=== PATIENT | male | born 1965 | race Caucasian/White ===

== ENCOUNTER 2018-06-29 19:07 | Inpatient (IN) | payer SELFPAY ==
[~2018-06-29] VITALS: Ht 172.7 cm; Wt 90.9 kg
[2018-06-29 20:10] LABS: BASOPHILS % (AUTO) 0.9 % (0.0-2.0); EOSINOPHILS % (AUTO) 11.9 % (1.0-6.0); HEMATOCRIT 44.5 % (41-53); HEMOGLOBIN 14.8 g/dL (13.5-17.5); LYMPHOCYTES % (AUTO) 26.8 % (22.0-44.0); MEAN CORPUSCULAR HGB CONC 33.3 G/dL (31.0-37.0); MEAN CORPUSCULAR VOLUME 102 fL (80-100); MONOCYTES # (AUTO) 0.4 K/uL (0.1-1.0); MONOCYTES % (AUTO) 5.6 % (2.0-9.0); NEUTROPHILS # (AUTO) 4.1 K/uL (1.8-7.7); NEUTROPHILS % (AUTO) 54.8 % (40.0-70.0); PLATELET COUNT (AUTO) 242 K/uL (150-450); RED BLOOD CELL COUNT(AUTO) 4.36 MIL/uL (4.50-5.90)
[2018-06-29 20:21] LABS: ANION GAP 5 mmol/L (8-16); CALCIUM, TOTAL 8.7 mg/dL (8.8-10.5); CARBON DIOXIDE 32 mmol/L (22-29); CHLORIDE 105 mmol/L (98-107); GLOMERULAR FILTR. RATE CALC > 60 mL/min (>60); GLUCOSE,RANDOM 115 mg/dL (70-110); SODIUM SERUM 142 mmol/L (136-145); UREA NITROGEN, BLOOD 7 mg/dL (7-18)
[2018-06-29 20:25] LABS: ALANINE AMINOTRANSFERASE 69 U/L (12-78); ALBUMIN 3.4 g/dL (3.4-5.0); ALKALINE PHOSPHATASE 108 U/L (46-116); ASPARTATE AMINOTRANSFERASE 106 U/L (15-37); BILIRUBIN,TOTAL 0.7 mg/dL (0.1-1.0); LIPASE 306 U/L (73-393); TOTAL PROTEIN, SERUM 9.5 g/dL (6.4-8.2)
[2018-06-29] MEDS ORDERED: POVIDONE-IODINE 10% 120 ML SOLUTION TP ONE (21:30)
[2018-06-29] MEDS ORDERED: IOVERSOL 350 MG/ML 100 ML VIAL ONE ×2 (21:33→23:14)
[2018-06-29] MEDS ORDERED: SODIUM CHLORIDE 0.9% 100 ML ONE ×2 (21:33→23:14)
[2018-06-29 21:45] LABS: PROTHROMBIN TIME 10.8 SEC (9.4-11.6)
[2018-06-29 22:42] LABS: APPEARANCE,URINE CLEAR (CLEAR); BILIRUBIN,URINE NEGATIVE (NEGATIVE); GLUCOSE, URINE (UA) NEGATIVE (NEGATIVE); KETONES,URINE NEGATIVE (NEGATIVE); LEUKOCYTE ESTERASE ,URINE NEGATIVE (NEGATIVE); NITRATE,URINE NEGATIVE (NEGATIVE); OCCULT BLOOD,URINE NEGATIVE (NEGATIVE); PROTEIN,URINE TRACE (NEGATIVE)
[2018-06-29 22:49] LABS: D-DIMER 2.74 mg/L FEU (0.00-0.50)
[2018-06-29] MEDS ORDERED: CefTRIAXone 1 GM/DEXTROSE 50 ML IV ONE (23:00)
[2018-06-29] MEDS ORDERED: SODIUM CHLORIDE 0.9% 1,000 ML IV ONE (23:00)
[2018-06-30] MEDS ORDERED: PHENYLEPHRINE HCL 0.5% 15 ML NASAL SPRAY NASAL ONE (01:15)
[2018-06-30] MEDS ORDERED: IOVERSOL 350 MG/ML 100 ML VIAL ONE (01:51)
[2018-06-30] MEDS ORDERED: 0.9% SODIUM CHLORIDE 10 ML SYRINGE IVP PRN ×2 (04:30→08:15)
[2018-06-30] MEDS ORDERED: ACETAMINOPHEN 325 MG TABLET PO PRN (04:30)
[2018-06-30] MEDS ORDERED: ONDANSETRON HCL 4 MG/2 ML VIAL IVP PRN (04:30)
[2018-06-30] MEDS: PANTOPRAZOLE SODIUM 40 MG/VIAL IVP SCH ×2 (08:54→21:19)
[2018-06-30] MEDS ORDERED: PERMETHRIN 5% 60 GM CREAM TP ONE (09:15)
[2018-06-30 09:18] VITALS: BP 131/93
[2018-06-30] MEDS ORDERED: IVERMECTIN 3 MG TABLET PO ONE (09:45)
[2018-06-30] MEDS ORDERED: MAGNESIUM SULFATE 2 GM, MVI, ADULT NO.1 WITH VIT K 10 ML, THIAMINE HCL 100 MG, FOLIC AC... IV ONE ×5 (10:00)
[2018-06-30] MEDS: THIAMINE HCL 100 MG TABLET PO SCH (10:47)
[2018-06-30] MEDS: LIDOCAINE 4% 50 ML SOLUTION TP SCH (10:49)
[2018-06-30 11:00] VITALS: BP 144/88
[2018-06-30] MEDS: ChlordiazePOXIDE HCL 10 MG CAPSULE PO SCH ×2 (15:23→21:18)
[2018-06-30 15:45] VITALS: BP 142/95
[2018-06-30 19:25] VITALS: BP 140/95
[2018-06-30 23:27] VITALS: BP 141/84
[2018-07-01] MEDS: CefTRIAXone 1 GM/DEXTROSE 50 ML IV SCH ×2 (00:20→23:39)
[2018-07-01 04:22] VITALS: BP 133/73
[2018-07-01 07:35] LABS: BASOPHILS % (AUTO) 0.7 % (0.0-2.0); EOSINOPHILS % (AUTO) 11.8 % (1.0-6.0); HEMATOCRIT 43.6 % (41-53); HEMOGLOBIN 14.6 g/dL (13.5-17.5); LYMPHOCYTES # (AUTO) 0.7 K/uL (1.0-4.8); LYMPHOCYTES % (AUTO) 17.4 % (22.0-44.0); MEAN CORPUSCULAR HEMOGLOBIN 33.9 pg (26.0-34.0); MEAN CORPUSCULAR HGB CONC 33.4 G/dL (31.0-37.0); MEAN CORPUSCULAR VOLUME 101 fL (80-100); MONOCYTES # (AUTO) 0.3 K/uL (0.1-1.0); MONOCYTES % (AUTO) 7.2 % (2.0-9.0); NEUTROPHILS # (AUTO) 2.5 K/uL (1.8-7.7); NEUTROPHILS % (AUTO) 62.9 % (40.0-70.0); PLATELET COUNT (AUTO) 165 K/uL (150-450); RED CELL DISTRIBUTION WIDTH 13.8 % (11.5-14.5)
[2018-07-01] MEDS: PANTOPRAZOLE SODIUM 40 MG/VIAL IVP SCH ×2 (07:59→20:42)
[2018-07-01] MEDS: THIAMINE HCL 100 MG TABLET PO SCH (07:59)
[2018-07-01] MEDS: ChlordiazePOXIDE HCL 10 MG CAPSULE PO SCH ×3 (07:59→20:42)
[2018-07-01 08:07] VITALS: BP 153/84
[2018-07-01 08:07] LABS: ALANINE AMINOTRANSFERASE 53 U/L (12-78); ALKALINE PHOSPHATASE 81 U/L (46-116); ANION GAP 11 mmol/L (8-16); ASPARTATE AMINOTRANSFERASE 71 U/L (15-37); BILIRUBIN,TOTAL 1.4 mg/dL (0.1-1.0); CALCIUM, TOTAL 8.8 mg/dL (8.8-10.5); CARBON DIOXIDE 24 mmol/L (22-29); CHLORIDE 101 mmol/L (98-107); CREATININE 0.95 mg/dL (0.60-1.30); GLOMERULAR FILTR. RATE CALC > 60 mL/min (>60); GLUCOSE,RANDOM 97 mg/dL (70-110); POTASSIUM 3.6 mmol/L (3.5-5.1); SODIUM SERUM 136 mmol/L (136-145); TOTAL PROTEIN, SERUM 8.8 g/dL (6.4-8.2); UREA NITROGEN, BLOOD 10 mg/dL (7-18)
[2018-07-01] MEDS: LIDOCAINE 4% 50 ML SOLUTION TP SCH (08:59)
[2018-07-01] MEDS ORDERED: LIDOCAINE 2% VISCOUS 15 ML SOLUTION UDCUP TP SCH (09:00)
[2018-07-01 11:18] VITALS: BP 122/71
[2018-07-01] MEDS: MULTIVITAMINS WITH MINERALS, THERAPEUTIC TABLET PO SCH (12:26)
[2018-07-01 15:43] VITALS: BP 130/79
[2018-07-01 19:29] VITALS: BP 123/73
[2018-07-01 23:35] VITALS: BP 128/72
[2018-07-01] MEDS ORDERED: SODIUM CHLORIDE 0.9% 250 ML IV ONE (23:40)
[2018-07-02 08:08] VITALS: BP 136/91
[2018-07-02] MEDS: LIDOCAINE 4% 50 ML SOLUTION TP SCH (09:00)
[2018-07-02] MEDS: THIAMINE HCL 100 MG TABLET PO SCH (09:00)
[2018-07-02] MEDS: PANTOPRAZOLE SODIUM 40 MG/VIAL IVP SCH (09:15)
[2018-07-02] MEDS: ChlordiazePOXIDE HCL 10 MG CAPSULE PO SCH (09:15)
[2018-07-02] MEDS: MULTIVITAMINS WITH MINERALS, THERAPEUTIC TABLET PO SCH (09:18)
[2018-07-02 13:32] VITALS: BP 116/69
== END 2018-07-02 15:00 | disposition home or self-care (01) | DRG 603 ==
LOC: EMS 19:09 → 5S 06-30 08:00 → 4E 07-02 06:30
PROVIDERS: ADMIT Internal Medicine; ATTEND Internal Medicine
DX: L03.115 Cellulitis of right lower limb (principal); K92.0 Hematemesis; F17.210 Nicotine dependence, cigarettes, uncomplicated; R04.0 Epistaxis; F10.129 Alcohol abuse with intoxication, unspecified; B86 Scabies; L03.116 Cellulitis of left lower limb; Z59.0 Homelessness
CPT/HCPCS: 71275; 74177; 83605; 83735; 85379; 87040; 92610; 93005; 93970; C9113; G0378; G0480; J0696; J2405; J3411; J3475; J3490; J7030; J7050

== ENCOUNTER 2018-08-20 10:43 | Emergency (ER) | payer MEDICAID ==
[~2018-08-20] VITALS: Ht 172.7 cm; Wt 81.8 kg
[2018-08-20] MEDS ORDERED: SODIUM CHLORIDE 0.9% 1,000 ML IV ONE (11:45)
[2018-08-20] MEDS ORDERED: ChlordiazePOXIDE HCL 25 MG CAPSULE PO ONE (11:45)
[2018-08-20 11:56] LABS: BASOPHILS % (AUTO) 0.4 % (0.0-2.0); EOSINOPHILS % (AUTO) 0.5 % (1.0-6.0); HEMATOCRIT 48.8 % (41-53); HEMOGLOBIN 16.3 g/dL (13.5-17.5); LYMPHOCYTES # (AUTO) 0.7 K/uL (1.0-4.8); MEAN CORPUSCULAR HEMOGLOBIN 33.4 pg (26.0-34.0); MEAN CORPUSCULAR HGB CONC 33.4 G/dL (31.0-37.0); MEAN CORPUSCULAR VOLUME 100 fL (80-100); MONOCYTES # (AUTO) 0.3 K/uL (0.1-1.0); MONOCYTES % (AUTO) 7.1 % (2.0-9.0); NEUTROPHILS # (AUTO) 3.1 K/uL (1.8-7.7); PLATELET COUNT (AUTO) 133 K/uL (150-450); RED BLOOD CELL COUNT(AUTO) 4.87 MIL/uL (4.50-5.90); RED CELL DISTRIBUTION WIDTH 13.7 % (11.5-14.5)
[2018-08-20 12:26] LABS: ANION GAP 12 mmol/L (8-16); CALCIUM, TOTAL 10.4 mg/dL (8.8-10.5); CARBON DIOXIDE 24 mmol/L (22-29); CHLORIDE 99 mmol/L (98-107); CREATININE 0.98 mg/dL (0.60-1.30); GLOMERULAR FILTR. RATE CALC > 60 mL/min (>60); GLUCOSE,RANDOM 130 mg/dL (70-110); POTASSIUM 4.4 mmol/L (3.5-5.1); SODIUM SERUM 135 mmol/L (136-145); UREA NITROGEN, BLOOD 11 mg/dL (7-18)
[2018-08-20 12:30] LABS: ALANINE AMINOTRANSFERASE 109 U/L (12-78); ALBUMIN 4.1 g/dL (3.4-5.0); ALKALINE PHOSPHATASE 96 U/L (46-116); ASPARTATE AMINOTRANSFERASE 136 U/L (15-37); BILIRUBIN,TOTAL 2.1 mg/dL (0.1-1.0); LIPASE 365 U/L (73-393); TOTAL PROTEIN, SERUM 10.7 g/dL (6.4-8.2)
[2018-08-20 13:00] VITALS: BP 149/88
[2018-08-20] MEDS ORDERED: ONDANSETRON HCL 4 MG/2 ML VIAL IVP ONE (13:15)
[2018-08-20 13:18] LABS: AMPHET/METH SCREEN,URINE NEGATIVE (NEGATIVE); BARBITURATE SCREEN, URINE NEGATIVE (NEGATIVE); BENZODIAZEPINES SCREEN,URINE NEGATIVE (NEGATIVE); CANNABINOID SCREEN,URINE NEGATIVE (NEGATIVE); COCAINE SCREEN,URINE NEGATIVE (NEGATIVE); METHADONE SCREEN, URINE NEGATIVE (NEGATIVE); OPIATE SCREEN,URINE NEGATIVE (NEGATIVE)
[2018-08-20 13:24] LABS: PHENCYCLIDINE SCREEN,URINE NEGATIVE (NEGATIVE)
== END 2018-08-20 13:28 | disposition home or self-care (01) ==
LOC: EMS 10:46
DX: F10.239 Alcohol dependence with withdrawal, unspecified (principal); F17.210 Nicotine dependence, cigarettes, uncomplicated
CPT/HCPCS: 36415; 71046; 80053; 80307; 83690; 85025; 96361; 96374; 99284; G0480; J2405

== ENCOUNTER 2021-01-09 07:02 | Emergency (ER) | payer MEDICAID ==
[~2021-01-09] VITALS: Ht 172.7 cm; Wt 90.0 kg
[2021-01-09 07:25] VITALS: BP 160/91
[2021-01-09] MEDS ORDERED: LIDOCAINE 5% TRANSDERMAL PATCH TD ONE (07:45)
[2021-01-09] MEDS ORDERED: IBUPROFEN 400 MG TABLET PO ONE (07:45)
[2021-01-09] MEDS ORDERED: ChlordiazePOXIDE HCL 25 MG CAPSULE PO ONE (07:45)
[2021-01-09] MEDS ORDERED: ACETAMINOPHEN 325 MG TABLET PO ONE (07:45)
== END 2021-01-09 13:15 | disposition home or self-care (01) ==
LOC: EMS 07:02
DX: M54.50 Low back pain, unspecified (principal); F17.210 Nicotine dependence, cigarettes, uncomplicated
CPT/HCPCS: 99284; Z7502; Z7610

== ENCOUNTER 2021-07-11 12:09 | Emergency (ER) | payer MEDICAID ==
[~2021-07-11] VITALS: Ht 172.7 cm; Wt 87.3 kg
[2021-07-11 13:03] VITALS: BP 141/87
[2021-07-11] MEDS ORDERED: IBUPROFEN 600 MG TABLET PO ONE (13:15)
== END 2021-07-11 13:41 | disposition home or self-care (01) ==
LOC: EMS 12:09
DX: M54.50 Low back pain, unspecified (principal); F10.20 Alcohol dependence, uncomplicated; F17.210 Nicotine dependence, cigarettes, uncomplicated; Z87.898 Personal history of other specified conditions; Z98.890 Other specified postprocedural states; Z59.00 Homelessness unspecified
CPT/HCPCS: 99283

== ENCOUNTER 2021-08-30 13:54 | Inpatient (IN) | payer MEDICAID ==
[~2021-08-30] VITALS: Ht 172.7 cm; Wt 84.1 kg
[2021-08-30] MEDS ORDERED: 0.9% SODIUM CHLORIDE 10 ML SYRINGE IVP PRN ×2 (15:30→17:45)
[2021-08-30] MEDS ORDERED: ACETAMINOPHEN 500 MG TABLET PO ONE (15:45)
[2021-08-30] MEDS ORDERED: PIPERACILLIN/TAZO 3.375 GM/D5W 50 ML IV ONE (15:45)
[2021-08-30] MEDS ORDERED: VANCOMYCIN 1GM/WATER(PEG/NADA) 200 ML IV ONE (15:45)
[2021-08-30 15:57] LABS: BASOPHILS % (AUTO) 0.8 % (0.0-2.0); EOSINOPHILS % (AUTO) 1.7 % (1.0-6.0); HEMATOCRIT 33.2 % (41-53); HEMOGLOBIN 11.1 g/dL (13.5-17.5); LYMPHOCYTES # (AUTO) 1.2 K/uL (1.0-4.8); LYMPHOCYTES % (AUTO) 15.3 % (22.0-44.0); MEAN CORPUSCULAR HGB CONC 33.4 G/dL (31.0-37.0); MEAN CORPUSCULAR VOLUME 87 fL (80-100); MONOCYTES # (AUTO) 0.8 K/uL (0.1-1.0); MONOCYTES % (AUTO) 9.4 % (2.0-9.0); NEUTROPHILS # (AUTO) 5.9 K/uL (1.8-7.7); NEUTROPHILS % (AUTO) 72.8 % (40.0-70.0); PLATELET COUNT (AUTO) 269 K/uL (150-450); RED BLOOD CELL COUNT(AUTO) 3.82 MIL/uL (4.50-5.90); RED CELL DISTRIBUTION WIDTH 25.8 % (11.5-14.5)
[2021-08-30 16:01] LABS: ANION GAP 9 mmol/L (8-16); CALCIUM, TOTAL 8.7 mg/dL (8.8-10.5); CARBON DIOXIDE 23 mmol/L (22-29); CHLORIDE 97 mmol/L (98-107); CREATININE 0.97 mg/dL (0.60-1.30); GLUCOSE,RANDOM 106 mg/dL (70-110); POTASSIUM 3.9 mmol/L (3.5-5.1); SODIUM SERUM 129 mmol/L (136-145); UREA NITROGEN, BLOOD 5 mg/dL (7-18)
[2021-08-30 16:05] LABS: GLOMERULAR FILTR. RATE CALC > 60 mL/min (>60)
[2021-08-30 16:07] LABS: ALANINE AMINOTRANSFERASE 27 U/L (12-78); ALBUMIN 2.3 g/dL (3.4-5.0); ALKALINE PHOSPHATASE 78 U/L (46-116); ASPARTATE AMINOTRANSFERASE 46 U/L (15-37); BILIRUBIN,TOTAL 1.6 mg/dL (0.1-1.0); TOTAL PROTEIN, SERUM 9.6 g/dL (6.4-8.2)
[2021-08-30 16:12] LABS: LACTIC ACID 2.4 mmol/L (0.4-2.0)
[2021-08-30] MEDS ORDERED: SODIUM CHLORIDE 0.9% 2,000 ML IV ONE (16:15)
[2021-08-30 16:23] LABS: INR 1.4 (0.9-1.1); PROTHROMBIN TIME 15.1 SEC (9.4-11.6)
[2021-08-30 16:24] LABS: B-TYPE NATRIURETIC PEPTIDE 60 pg/mL (0-100)
[2021-08-30] MEDS ORDERED: AZITHROMYCIN 500 MG/NS 250 ML IV ONE (16:45)
[2021-08-30] MEDS ORDERED: ONDANSETRON HCL 4 MG/2 ML VIAL IVP PRN ×2 (17:45→18:00)
[2021-08-30] MEDS ORDERED: ACETAMINOPHEN 325 MG TABLET PO PRN (17:45)
[2021-08-30 17:49] LABS: APPEARANCE,URINE CLEAR (CLEAR); BILIRUBIN,URINE NEGATIVE (NEGATIVE); GLUCOSE, URINE (UA) NEGATIVE (NEGATIVE); KETONES,URINE NEGATIVE (NEGATIVE); LEUKOCYTE ESTERASE ,URINE NEGATIVE (NEGATIVE); NITRATE,URINE NEGATIVE (NEGATIVE); OCCULT BLOOD,URINE NEGATIVE (NEGATIVE); PH,URINE 6.5 (5.0-8.0); PROTEIN,URINE NEGATIVE (NEGATIVE); SPECIFIC GRAVITIY, URINE 1.012 (1.003-1.030); UROBILINOGEN,URINE >12.0 mg/dL (<=1.0)
[2021-08-30 17:55] LABS: AMPHET/METH SCREEN,URINE NEGATIVE (NEGATIVE); BARBITURATE SCREEN, URINE NEGATIVE (NEGATIVE); BENZODIAZEPINES SCREEN,URINE NEGATIVE (NEGATIVE); CANNABINOID SCREEN,URINE NEGATIVE (NEGATIVE); COCAINE SCREEN,URINE NEGATIVE (NEGATIVE); METHADONE SCREEN, URINE NEGATIVE (NEGATIVE); OPIATE SCREEN,URINE NEGATIVE (NEGATIVE)
[2021-08-30 17:56] LABS: PHENCYCLIDINE SCREEN,URINE NEGATIVE (NEGATIVE)
[2021-08-30] MEDS ORDERED: BISACODYL 10 MG RECTAL RECTAL SUPPOSITORY PR PRN (18:00)
[2021-08-30] MEDS ORDERED: ZOLPIDEM TARTRATE 5 MG TABLET PO PRN (18:00)
[2021-08-30] MEDS ORDERED: IPRATROPIUM BROMIDE 0.5 MG/2.5 ML NEB SOLUTION NEB PRN (18:00)
[2021-08-30] MEDS ORDERED: MORPHINE SULFATE 2 MG/ML SYRINGE IVP PRN (18:00)
[2021-08-30] MEDS ORDERED: MAGNESIUM HYDROXIDE SUSPENSION 30 ML UDCUP PO PRN (18:00)
[2021-08-30] MEDS ORDERED: ALBUTEROL SULFATE 2.5 MG/0.5 ML NEB SOLUTION NEB PRN (18:00)
[2021-08-30 20:54] LABS: COVID AG,FIA SOURCE NASOPHARYNGEAL
[2021-08-30] MEDS ORDERED: DiphenhydrAMINE/ZINC ACET 30 GM CREAM TP PRN (21:15)
[2021-08-30 21:20] VITALS: BP 115/74
[2021-08-30] MEDS: DOCUSATE SODIUM 100 MG CAPSULE PO SCH (21:21)
[2021-08-30] MEDS: HYDROCODONE/ACETAMINOPHEN 5-325 MG TABLET PO PRN (21:22)
[2021-08-30] MEDS: HEPARIN SODIUM,PORCINE 5,000 UNITS/ML VIAL SQ SCH (23:28)
[2021-08-31 04:30] VITALS: BP 109/70
[2021-08-31] MEDS ORDERED: MAGNESIUM HYDROXIDE SUSPENSION 30 ML UDCUP PO PRN (06:00)
[2021-08-31] MEDS ORDERED: BISACODYL 10 MG RECTAL RECTAL SUPPOSITORY PR PRN (06:00)
[2021-08-31] MEDS ORDERED: HYDROCODONE/ACETAMINOPHEN 5-325 MG TABLET PO PRN (06:00)
[2021-08-31] MEDS ORDERED: ONDANSETRON HCL 4 MG/2 ML VIAL IVP PRN (06:00)
[2021-08-31] MEDS ORDERED: AZITHROMYCIN 500 MG/NS 250 ML IV SCH (06:00)
[2021-08-31] MEDS ORDERED: ACETAMINOPHEN 325 MG TABLET PO PRN (06:00)
[2021-08-31] MEDS ORDERED: ALBUTEROL SULFATE 2.5 MG/0.5 ML NEB SOLUTION NEB PRN (06:00)
[2021-08-31] MEDS ORDERED: MORPHINE SULFATE 2 MG/ML SYRINGE IVP PRN (06:00)
[2021-08-31] MEDS ORDERED: ZOLPIDEM TARTRATE 5 MG TABLET PO PRN (06:00)
[2021-08-31] MEDS ORDERED: IPRATROPIUM BROMIDE 0.5 MG/2.5 ML NEB SOLUTION NEB PRN (06:00)
[2021-08-31 06:02] LABS: BASOPHILS % (AUTO) 1.2 % (0.0-2.0); EOSINOPHILS % (AUTO) 2.8 % (1.0-6.0); HEMATOCRIT 32.4 % (41-53); HEMOGLOBIN 10.7 g/dL (13.5-17.5); LYMPHOCYTES # (AUTO) 1.1 K/uL (1.0-4.8); LYMPHOCYTES % (AUTO) 20.5 % (22.0-44.0); MEAN CORPUSCULAR HGB CONC 33.1 G/dL (31.0-37.0); MEAN CORPUSCULAR VOLUME 88 fL (80-100); MONOCYTES # (AUTO) 0.6 K/uL (0.1-1.0); MONOCYTES % (AUTO) 10.2 % (2.0-9.0); NEUTROPHILS # (AUTO) 3.6 K/uL (1.8-7.7); NEUTROPHILS % (AUTO) 65.3 % (40.0-70.0); PLATELET COUNT (AUTO) 242 K/uL (150-450); RED CELL DISTRIBUTION WIDTH 25.2 % (11.5-14.5)
[2021-08-31] MEDS ORDERED: SODIUM CHLORIDE 0.9% 500 ML IV ONE (06:03)
[2021-08-31 06:25] LABS: ALANINE AMINOTRANSFERASE 22 U/L (12-78); ALBUMIN 2.1 g/dL (3.4-5.0); ALKALINE PHOSPHATASE 70 U/L (46-116); ANION GAP 8 mmol/L (8-16); ASPARTATE AMINOTRANSFERASE 41 U/L (15-37); BILIRUBIN,TOTAL 1.5 mg/dL (0.1-1.0); CALCIUM, TOTAL 8.8 mg/dL (8.8-10.5); CARBON DIOXIDE 24 mmol/L (22-29); CHLORIDE 103 mmol/L (98-107); CREATININE 0.82 mg/dL (0.60-1.30); GLUCOSE,RANDOM 117 mg/dL (70-110); POTASSIUM 4.1 mmol/L (3.5-5.1); SODIUM SERUM 135 mmol/L (136-145); TOTAL PROTEIN, SERUM 8.7 g/dL (6.4-8.2); UREA NITROGEN, BLOOD 5 mg/dL (7-18)
[2021-08-31] MEDS ORDERED: CefTRIAXone 1 GM/DEXTROSE 50 ML IV SCH (06:30)
[2021-08-31 06:44] LABS: GLOMERULAR FILTR. RATE CALC > 60 mL/min (>60)
[2021-08-31 07:59] VITALS: BP 110/72
[2021-08-31] MEDS ORDERED: HEPARIN SODIUM,PORCINE 5,000 UNITS/ML VIAL SQ SCH (08:00)
[2021-08-31] MEDS: DOCUSATE SODIUM 100 MG CAPSULE PO SCH ×2 (09:00→20:23)
[2021-08-31] MEDS ORDERED: DOCUSATE SODIUM 100 MG CAPSULE PO SCH (09:00)
[2021-08-31] MEDS ORDERED: PANTOPRAZOLE SODIUM 40 MG/VIAL IVP SCH (09:00)
[2021-08-31] MEDS: PANTOPRAZOLE SODIUM 40 MG/VIAL IVP SCH (09:23)
[2021-08-31] MEDS: HEPARIN SODIUM,PORCINE 5,000 UNITS/ML VIAL SQ SCH ×3 (09:24→23:34)
[2021-08-31] MEDS: ACETAMINOPHEN 325 MG TABLET PO PRN ×2 (13:41→20:24)
[2021-08-31] MEDS ORDERED: DOXYCYCLINE HYCLATE 100 MG TABLET PO ONE (14:15)
[2021-08-31] MEDS ORDERED: SODIUM CHLORIDE 0.9% 100 ML ONE (15:41)
[2021-08-31] MEDS ORDERED: IOHEXOL 350 MG/ML 100 ML VIAL ONE (15:41)
[2021-08-31 15:51] VITALS: BP 118/74
[2021-08-31] MEDS: PIPERACILLIN/TAZO 3.375 GM/D5W 50 ML IV SCH ×2 (18:07→23:34)
[2021-08-31] MEDS: DOXYCYCLINE HYCLATE 100 MG TABLET PO SCH (20:23)
[2021-08-31 20:37] VITALS: BP 118/62
[2021-09-01 05:09] VITALS: BP 108/80
[2021-09-01] MEDS: PIPERACILLIN/TAZO 3.375 GM/D5W 50 ML IV SCH ×4 (06:04→23:32)
[2021-09-01 06:12] LABS: ALANINE AMINOTRANSFERASE 24 U/L (12-78); ALBUMIN 2.2 g/dL (3.4-5.0); ALKALINE PHOSPHATASE 79 U/L (46-116); ANION GAP 9 mmol/L (8-16); ASPARTATE AMINOTRANSFERASE 43 U/L (15-37); C-REACTIVE PROTEIN QUANT 0.29 mg/dL (0.00-0.30); CALCIUM, TOTAL 9.1 mg/dL (8.8-10.5); CARBON DIOXIDE 22 mmol/L (22-29); CHLORIDE 104 mmol/L (98-107); CREATININE 0.87 mg/dL (0.60-1.30); GLUCOSE,RANDOM 103 mg/dL (70-110); SODIUM SERUM 135 mmol/L (136-145); TOTAL PROTEIN, SERUM 8.7 g/dL (6.4-8.2); UREA NITROGEN, BLOOD 8 mg/dL (7-18)
[2021-09-01 06:18] LABS: GLOMERULAR FILTR. RATE CALC > 60 mL/min (>60)
[2021-09-01 08:04] VITALS: BP 111/71
[2021-09-01] MEDS: DOXYCYCLINE HYCLATE 100 MG TABLET PO SCH ×2 (08:30→20:37)
[2021-09-01] MEDS: FOLIC ACID 1 MG TABLET PO SCH (08:30)
[2021-09-01] MEDS: THIAMINE 100 MG TABLET PO SCH (08:30)
[2021-09-01] MEDS: DOCUSATE SODIUM 100 MG CAPSULE PO SCH ×2 (08:30→20:36)
[2021-09-01] MEDS: HEPARIN SODIUM,PORCINE 5,000 UNITS/ML VIAL SQ SCH ×3 (08:31→23:33)
[2021-09-01] MEDS: PANTOPRAZOLE SODIUM 40 MG/VIAL IVP SCH (08:31)
[2021-09-01] MEDS: MULTIVITAMINS WITH MINERALS, THERAPEUTIC TABLET PO SCH (11:37)
[2021-09-01] MEDS: HYDROCODONE/ACETAMINOPHEN 5-325 MG TABLET PO PRN (15:32)
[2021-09-01 16:10] VITALS: BP 113/78
[2021-09-01] MEDS ORDERED: VANCOMYCIN 1GM/WATER(PEG/NADA) 200 ML IV ONE (16:15)
[2021-09-01 20:37] VITALS: BP 93/67
[2021-09-01] MEDS: VANCOMYCIN HCL 750 MG in DEXTROSE 5%-WATER 250 ML IV SCH (23:39)
[2021-09-02 05:19] VITALS: BP 112/74
[2021-09-02] MEDS: PIPERACILLIN/TAZO 3.375 GM/D5W 50 ML IV SCH ×2 (05:20→13:17)
[2021-09-02 07:06] LABS: HIV 1-2 SCREEN 4TH GEN W/RFLX Non Reactive (Non Reactive)
[2021-09-02 07:21] LABS: ANION GAP 9 mmol/L (8-16); CARBON DIOXIDE 23 mmol/L (22-29); CHLORIDE 104 mmol/L (98-107); CREATININE 0.82 mg/dL (0.60-1.30); GLUCOSE,RANDOM 106 mg/dL (70-110); POTASSIUM 4.3 mmol/L (3.5-5.1); SODIUM SERUM 136 mmol/L (136-145); UREA NITROGEN, BLOOD 8 mg/dL (7-18)
[2021-09-02 07:22] LABS: GLOMERULAR FILTR. RATE CALC > 60 mL/min (>60)
[2021-09-02] MEDS: FOLIC ACID 1 MG TABLET PO SCH (08:29)
[2021-09-02] MEDS: DOXYCYCLINE HYCLATE 100 MG TABLET PO SCH (08:29)
[2021-09-02] MEDS: DOCUSATE SODIUM 100 MG CAPSULE PO SCH ×2 (08:29→21:18)
[2021-09-02] MEDS: THIAMINE 100 MG TABLET PO SCH (08:29)
[2021-09-02] MEDS: VANCOMYCIN HCL 750 MG in DEXTROSE 5%-WATER 250 ML IV SCH ×2 (08:30→16:57)
[2021-09-02] MEDS: PANTOPRAZOLE SODIUM 40 MG/VIAL IVP SCH (08:30)
[2021-09-02] MEDS: HEPARIN SODIUM,PORCINE 5,000 UNITS/ML VIAL SQ SCH ×2 (08:30→16:57)
[2021-09-02 08:35] VITALS: BP 121/81
[2021-09-02] MEDS: MULTIVITAMINS WITH MINERALS, THERAPEUTIC TABLET PO SCH (13:17)
[2021-09-02] MEDS ORDERED: SODIUM CHLORIDE 0.9% 250 ML IV ONE (13:19)
[2021-09-02] MEDS: CLINDAMYCIN HCL 150 MG CAPSULE PO SCH (16:57)
[2021-09-02 17:38] VITALS: BP 108/75
[2021-09-02 19:35] VITALS: BP 118/69
[2021-09-03] MEDS: CLINDAMYCIN HCL 150 MG CAPSULE PO SCH ×2 (00:08→09:24)
[2021-09-03] MEDS: VANCOMYCIN HCL 750 MG in DEXTROSE 5%-WATER 250 ML IV SCH ×2 (00:08→09:21)
[2021-09-03] MEDS: HEPARIN SODIUM,PORCINE 5,000 UNITS/ML VIAL SQ SCH ×3 (00:09→16:18)
[2021-09-03 04:05] VITALS: BP 107/73
[2021-09-03 07:34] LABS: ANION GAP 10 mmol/L (8-16); CALCIUM, TOTAL 9.1 mg/dL (8.8-10.5); CARBON DIOXIDE 25 mmol/L (22-29); CHLORIDE 104 mmol/L (98-107); CREATININE 0.84 mg/dL (0.60-1.30); GLUCOSE,RANDOM 111 mg/dL (70-110); POTASSIUM 4.4 mmol/L (3.5-5.1); SODIUM SERUM 139 mmol/L (136-145); UREA NITROGEN, BLOOD 9 mg/dL (7-18); VANCOMYCIN,RANDOM 14.6 mcg/mL (25.0-50.0)
[2021-09-03 07:35] LABS: GLOMERULAR FILTR. RATE CALC > 60 mL/min (>60)
[2021-09-03 08:03] VITALS: BP 113/74
[2021-09-03] MEDS: DOCUSATE SODIUM 100 MG CAPSULE PO SCH ×2 (09:24→19:55)
[2021-09-03] MEDS: PANTOPRAZOLE SODIUM 40 MG/VIAL IVP SCH (09:24)
[2021-09-03] MEDS: FOLIC ACID 1 MG TABLET PO SCH (09:24)
[2021-09-03] MEDS: THIAMINE 100 MG TABLET PO SCH (09:24)
[2021-09-03] MEDS: MULTIVITAMINS WITH MINERALS, THERAPEUTIC TABLET PO SCH (12:19)
[2021-09-03 15:58] VITALS: BP 112/79
[2021-09-03] MEDS: AMPICILLIN SODIUM/SULBACTAM NA 3 GM in SODIUM CHLORIDE 0.9% 100 ML IV SCH (16:57)
[2021-09-03 20:23] VITALS: BP 140/63
[2021-09-04] MEDS: HEPARIN SODIUM,PORCINE 5,000 UNITS/ML VIAL SQ SCH ×4 (00:09→23:52)
[2021-09-04] MEDS: AMPICILLIN SODIUM/SULBACTAM NA 3 GM in SODIUM CHLORIDE 0.9% 100 ML IV SCH ×5 (00:09→23:53)
[2021-09-04 05:29] VITALS: BP 98/75
[2021-09-04 07:30] VITALS: BP 97/56
[2021-09-04 08:52] LABS: ANION GAP 10 mmol/L (8-16); CARBON DIOXIDE 24 mmol/L (22-29); CHLORIDE 104 mmol/L (98-107); CREATININE 0.82 mg/dL (0.60-1.30); GLUCOSE,RANDOM 110 mg/dL (70-110); POTASSIUM 4.2 mmol/L (3.5-5.1); SODIUM SERUM 138 mmol/L (136-145); UREA NITROGEN, BLOOD 9 mg/dL (7-18)
[2021-09-04] MEDS: PANTOPRAZOLE SODIUM 40 MG/VIAL IVP SCH (08:53)
[2021-09-04] MEDS: THIAMINE 100 MG TABLET PO SCH (08:53)
[2021-09-04] MEDS: DOCUSATE SODIUM 100 MG CAPSULE PO SCH ×3 (08:53→21:54)
[2021-09-04 08:56] LABS: GLOMERULAR FILTR. RATE CALC > 60 mL/min (>60)
[2021-09-04] MEDS: FOLIC ACID 1 MG TABLET PO SCH (08:56)
[2021-09-04] MEDS: MULTIVITAMINS WITH MINERALS, THERAPEUTIC TABLET PO SCH (13:11)
[2021-09-04 19:45] VITALS: BP 97/60
[2021-09-05 04:15] VITALS: BP 106/45
[2021-09-05] MEDS: AMPICILLIN SODIUM/SULBACTAM NA 3 GM in SODIUM CHLORIDE 0.9% 100 ML IV SCH ×3 (05:10→18:37)
[2021-09-05 08:29] VITALS: BP 104/56
[2021-09-05 08:43] LABS: ANION GAP 10 mmol/L (8-16); CALCIUM, TOTAL 9.6 mg/dL (8.8-10.5); CARBON DIOXIDE 25 mmol/L (22-29); CHLORIDE 105 mmol/L (98-107); GLOMERULAR FILTR. RATE CALC > 60 mL/min (>60); GLUCOSE,RANDOM 145 mg/dL (70-110); POTASSIUM 4.2 mmol/L (3.5-5.1); SODIUM SERUM 140 mmol/L (136-145); UREA NITROGEN, BLOOD 9 mg/dL (7-18)
[2021-09-05] MEDS: FOLIC ACID 1 MG TABLET PO SCH (09:00)
[2021-09-05] MEDS: THIAMINE 100 MG TABLET PO SCH (09:00)
[2021-09-05] MEDS: HEPARIN SODIUM,PORCINE 5,000 UNITS/ML VIAL SQ SCH ×2 (09:00→18:37)
[2021-09-05] MEDS: PANTOPRAZOLE SODIUM 40 MG/VIAL IVP SCH (09:00)
[2021-09-05] MEDS: DOCUSATE SODIUM 100 MG CAPSULE PO SCH ×3 (09:00→20:31)
[2021-09-05] MEDS: MULTIVITAMINS WITH MINERALS, THERAPEUTIC TABLET PO SCH (13:05)
[2021-09-05 16:32] VITALS: BP 100/67
[2021-09-05 20:30] VITALS: BP 111/78
[2021-09-06] MEDS: AMPICILLIN SODIUM/SULBACTAM NA 3 GM in SODIUM CHLORIDE 0.9% 100 ML IV SCH ×5 (00:35→23:51)
[2021-09-06] MEDS: HEPARIN SODIUM,PORCINE 5,000 UNITS/ML VIAL SQ SCH ×4 (00:35→23:58)
[2021-09-06 04:39] VITALS: BP 112/71
[2021-09-06 08:00] LABS: ANION GAP 9 mmol/L (8-16); CALCIUM, TOTAL 9.1 mg/dL (8.8-10.5); CARBON DIOXIDE 24 mmol/L (22-29); CHLORIDE 105 mmol/L (98-107); CREATININE 0.76 mg/dL (0.60-1.30); GLUCOSE,RANDOM 107 mg/dL (70-110); POTASSIUM 4.1 mmol/L (3.5-5.1); SODIUM SERUM 138 mmol/L (136-145); UREA NITROGEN, BLOOD 8 mg/dL (7-18)
[2021-09-06 08:01] LABS: GLOMERULAR FILTR. RATE CALC > 60 mL/min (>60)
[2021-09-06 08:23] VITALS: BP 122/74
[2021-09-06] MEDS: DOCUSATE SODIUM 100 MG CAPSULE PO SCH ×4 (09:00→19:49)
[2021-09-06] MEDS: PANTOPRAZOLE SODIUM 40 MG/VIAL IVP SCH (09:27)
[2021-09-06] MEDS: FOLIC ACID 1 MG TABLET PO SCH (09:28)
[2021-09-06] MEDS: THIAMINE 100 MG TABLET PO SCH (09:28)
[2021-09-06] MEDS: MULTIVITAMINS WITH MINERALS, THERAPEUTIC TABLET PO SCH (12:24)
[2021-09-06 15:35] VITALS: BP 124/72
[2021-09-06 19:29] VITALS: BP 108/74
[2021-09-07 04:16] VITALS: BP 100/55
[2021-09-07] MEDS: AMPICILLIN SODIUM/SULBACTAM NA 3 GM in SODIUM CHLORIDE 0.9% 100 ML IV SCH ×4 (05:42→23:58)
[2021-09-07 08:14] VITALS: BP 109/74
[2021-09-07] MEDS: FOLIC ACID 1 MG TABLET PO SCH (08:35)
[2021-09-07] MEDS: HEPARIN SODIUM,PORCINE 5,000 UNITS/ML VIAL SQ SCH ×3 (08:35→23:58)
[2021-09-07] MEDS: THIAMINE 100 MG TABLET PO SCH (08:35)
[2021-09-07] MEDS: DOCUSATE SODIUM 100 MG CAPSULE PO SCH ×2 (08:35→20:29)
[2021-09-07] MEDS: PANTOPRAZOLE SODIUM 40 MG/VIAL IVP SCH (08:35)
[2021-09-07] MEDS: MULTIVITAMINS WITH MINERALS, THERAPEUTIC TABLET PO SCH (11:28)
[2021-09-07 16:09] VITALS: BP 127/80
[2021-09-07 21:15] VITALS: BP 120/74
[2021-09-08 04:25] VITALS: BP 105/73
[2021-09-08] MEDS: AMPICILLIN SODIUM/SULBACTAM NA 3 GM in SODIUM CHLORIDE 0.9% 100 ML IV SCH ×3 (05:52→19:11)
[2021-09-08 08:16] VITALS: BP 111/80
[2021-09-08] MEDS: PANTOPRAZOLE SODIUM 40 MG/VIAL IVP SCH (08:20)
[2021-09-08] MEDS: DOCUSATE SODIUM 100 MG CAPSULE PO SCH ×3 (08:20→21:00)
[2021-09-08] MEDS: FOLIC ACID 1 MG TABLET PO SCH (08:20)
[2021-09-08] MEDS: HEPARIN SODIUM,PORCINE 5,000 UNITS/ML VIAL SQ SCH ×2 (08:20→15:52)
[2021-09-08] MEDS: THIAMINE 100 MG TABLET PO SCH (08:20)
[2021-09-08] MEDS: MULTIVITAMINS WITH MINERALS, THERAPEUTIC TABLET PO SCH (12:00)
[2021-09-08 16:06] VITALS: BP 115/54
[2021-09-08 23:19] VITALS: BP 121/90
[2021-09-09] MEDS ORDERED: SODIUM CHLORIDE 0.9% 250 ML IV ONE (00:12)
[2021-09-09] MEDS: AMPICILLIN SODIUM/SULBACTAM NA 3 GM in SODIUM CHLORIDE 0.9% 100 ML IV SCH ×2 (00:13→05:18)
[2021-09-09] MEDS: HEPARIN SODIUM,PORCINE 5,000 UNITS/ML VIAL SQ SCH ×3 (00:13→16:00)
[2021-09-09 06:11] VITALS: BP 114/71
[2021-09-09 08:16] VITALS: BP 101/72
[2021-09-09] MEDS: DOCUSATE SODIUM 100 MG CAPSULE PO SCH (09:35)
[2021-09-09] MEDS: FOLIC ACID 1 MG TABLET PO SCH (09:35)
[2021-09-09] MEDS: THIAMINE 100 MG TABLET PO SCH (09:35)
[2021-09-09] MEDS: PANTOPRAZOLE SODIUM 40 MG/VIAL IVP SCH (09:41)
[2021-09-09] MEDS: MULTIVITAMINS WITH MINERALS, THERAPEUTIC TABLET PO SCH (12:00)
[2021-09-09 15:56] VITALS: BP 118/88
== END 2021-09-09 18:05 | disposition home or self-care (01) | DRG 383 ==
LOC: EMS 13:54 → 6S 17:55
PROVIDERS: ADMIT Hospitalist; ATTEND Hospitalist
DX: L03.116 Cellulitis of left lower limb (principal); E43 Unspecified severe protein-calorie malnutrition; J18.9 Pneumonia, unspecified organism; R65.10 Systemic inflammatory response syndrome (SIRS) of non-infectious origin without acute organ dysfunction; F17.210 Nicotine dependence, cigarettes, uncomplicated; L29.9 Pruritus, unspecified; F10.20 Alcohol dependence, uncomplicated; E87.6 Hypokalemia; A49.01 Methicillin susceptible Staphylococcus aureus infection, unspecified site; Z20.822 Contact with and (suspected) exposure to COVID-19; W50.1XXA Accidental kick by another person, initial encounter; Z59.00 Homelessness unspecified; Y93.89 Activity, other specified; Y92.89 Other specified places as the place of occurrence of the external cause; Y99.8 Other external cause status
CPT/HCPCS: 71045; 71100; 71260; 72193; 74160; 80048; 80053; 80202; 81003; 83605; 83880; 84145; 84484; 85025; 85610; 86140; 86592; 87040; 87070; 87205; 87389; 99285; C9113; G0480; J0295; J0456; J0696; J1644; J2543; J3370; J7040; J7050; J7060; Q9967; 36415-L1; 36415-TC

== ENCOUNTER 2021-09-30 12:20 | Emergency (ER) | payer MEDICAID ==
[~2021-09-30] VITALS: Ht 172.7 cm; Wt 100.0 kg
[2021-09-30] MEDS ORDERED: KETOROLAC TROMETHAMINE 30 MG/ML VIAL IM ONE (14:15)
[2021-09-30] MEDS ORDERED: MULTIVITAMINS WITH MINERALS, THERAPEUTIC TABLET PO ONE (14:15)
[2021-09-30 14:35] LABS: BASOPHILS % (AUTO) 0.7 % (0.0-2.0); EOSINOPHILS % (AUTO) 3.1 % (1.0-6.0); HEMATOCRIT 29.4 % (41-53); HEMOGLOBIN 9.8 g/dL (13.5-17.5); LYMPHOCYTES # (AUTO) 2.4 K/uL (1.0-4.8); LYMPHOCYTES % (AUTO) 49.5 % (22.0-44.0); MEAN CORPUSCULAR HEMOGLOBIN 27.5 pg (26.0-34.0); MEAN CORPUSCULAR HGB CONC 33.2 G/dL (31.0-37.0); MEAN CORPUSCULAR VOLUME 83 fL (80-100); MONOCYTES # (AUTO) 0.4 K/uL (0.1-1.0); MONOCYTES % (AUTO) 8.1 % (2.0-9.0); NEUTROPHILS # (AUTO) 1.9 K/uL (1.8-7.7); NEUTROPHILS % (AUTO) 38.6 % (40.0-70.0); PLATELET COUNT (AUTO) 115 K/uL (150-450); RED BLOOD CELL COUNT(AUTO) 3.56 MIL/uL (4.50-5.90); RED CELL DISTRIBUTION WIDTH 21.3 % (11.5-14.5)
[2021-09-30 14:54] LABS: ANION GAP 9 mmol/L (8-16); CALCIUM, TOTAL 8.7 mg/dL (8.8-10.5); CARBON DIOXIDE 25 mmol/L (22-29); CHLORIDE 104 mmol/L (98-107); CREATININE 0.79 mg/dL (0.60-1.30); GLUCOSE,RANDOM 102 mg/dL (70-110); POTASSIUM 3.7 mmol/L (3.5-5.1); SODIUM SERUM 138 mmol/L (136-145); UREA NITROGEN, BLOOD 7 mg/dL (7-18)
[2021-09-30 14:55] LABS: GLOMERULAR FILTR. RATE CALC > 60 mL/min (>60)
[2021-09-30 14:58] LABS: ALANINE AMINOTRANSFERASE 33 U/L (12-78); ALBUMIN 2.8 g/dL (3.4-5.0); ALKALINE PHOSPHATASE 92 U/L (46-116); ASPARTATE AMINOTRANSFERASE 66 U/L (15-37); BILIRUBIN,TOTAL 1.1 mg/dL (0.1-1.0)
[2021-09-30 21:02] VITALS: BP 130/90
== END 2021-09-30 21:02 | disposition home or self-care (01) ==
LOC: EMS 12:21
DX: F10.10 Alcohol abuse, uncomplicated (principal); M54.50 Low back pain, unspecified; R53.1 Weakness; F17.210 Nicotine dependence, cigarettes, uncomplicated; Z59.00 Homelessness unspecified; Z98.890 Other specified postprocedural states; Z72.89 Other problems related to lifestyle
CPT/HCPCS: 99285; 80053; 85025; 36415; 96372; G0480; J1885

== ENCOUNTER 2022-12-20 21:26 | Emergency (ER) | payer MEDICAID ==
[~2022-12-20] VITALS: Ht 172.7 cm; Wt 77.3 kg
[2022-12-20 21:35] VITALS: TEMP 99.5
[2022-12-20] MEDS ORDERED: KETOROLAC TROMETHAMINE 30 MG/ML VIAL IVP ONE (22:15)
[2022-12-20] MEDS ORDERED: MAGNESIUM SULFATE 2 GM, MVI, ADULT NO.1 WITH VIT K 10 ML, THIAMINE 100 MG, FOLIC ACID 1... IV ONE ×5 (22:15)
[2022-12-20 22:35] LABS: BASOPHILS % (AUTO) 0.3 % (0.0-2.0); EOSINOPHILS % (AUTO) 3.3 % (1.0-6.0); HEMOGLOBIN 11.9 g/dL (13.5-17.5); LYMPHOCYTES # (AUTO) 2.1 K/uL (1.0-4.8); LYMPHOCYTES % (AUTO) 33.2 % (22.0-44.0); MEAN CORPUSCULAR HEMOGLOBIN 32.2 pg (26.0-34.0); MEAN CORPUSCULAR VOLUME 95 fL (80-100); MONOCYTES # (AUTO) 0.5 K/uL (0.1-1.0); NEUTROPHILS # (AUTO) 3.5 K/uL (1.8-7.7); NEUTROPHILS % (AUTO) 55.2 % (40.0-70.0); PLATELET COUNT (AUTO) 108 K/uL (150-450); RED CELL DISTRIBUTION WIDTH 14.4 % (11.5-14.5); WHITE BLOOD COUNT (AUTO) 6.4 K/uL (4.5-11.0)
[2022-12-20 22:47] LABS: ALCOHOL, BLOOD (SERUM) 253 mg/dL (0-10)
[2022-12-20 22:52] LABS: ANION GAP 6 mmol/L (8-16); CARBON DIOXIDE 29 mmol/L (22-29); CHLORIDE 107 mmol/L (98-107); CREATININE 0.66 mg/dL (0.60-1.30); GLUCOSE,RANDOM 117 mg/dL (70-110); POTASSIUM 4.7 mmol/L (3.5-5.1); SODIUM SERUM 142 mmol/L (136-145); UREA NITROGEN, BLOOD 7 mg/dL (7-18)
[2022-12-20 22:53] LABS: GLOMERULAR FILTR. RATE CALC > 60 mL/min (>60)
[2022-12-20 22:58] LABS: ALANINE AMINOTRANSFERASE 35 U/L (12-78); ALBUMIN 2.9 g/dL (3.4-5.0); ALKALINE PHOSPHATASE 203 U/L (46-116); ASPARTATE AMINOTRANSFERASE 48 U/L (15-37); BILIRUBIN,TOTAL 0.7 mg/dL (0.1-1.0); TOTAL PROTEIN, SERUM 7.4 g/dL (6.4-8.2)
[2022-12-21] MEDS ORDERED: ChlordiazePOXIDE HCL 25 MG CAPSULE PO ONE
[2022-12-21 00:12] LABS: APPEARANCE,URINE CLEAR (CLEAR); BILIRUBIN,URINE NEGATIVE (NEGATIVE); COLOR,URINE LIGHT YELLOW (YELLOW); GLUCOSE, URINE (UA) NEGATIVE (NEGATIVE); KETONES,URINE NEGATIVE (NEGATIVE); LEUKOCYTE ESTERASE ,URINE NEGATIVE (NEGATIVE); NITRATE,URINE NEGATIVE (NEGATIVE); OCCULT BLOOD,URINE NEGATIVE (NEGATIVE); PH,URINE 6.5 (5.0-8.0); PROTEIN,URINE NEGATIVE (NEGATIVE); SPECIFIC GRAVITIY, URINE 1.007 (1.003-1.030); UROBILINOGEN,URINE <=1.0 mg/dL (<=1.0)
[2022-12-21 00:17] LABS: ALCOHOL, URINE DRUG SCREEN POSITIVE (NEGATIVE); AMPHET/METH SCREEN,URINE NEGATIVE (NEGATIVE); BARBITURATE SCREEN, URINE NEGATIVE (NEGATIVE); BENZODIAZEPINES SCREEN,URINE NEGATIVE (NEGATIVE); CANNABINOID SCREEN,URINE NEGATIVE (NEGATIVE); COCAINE SCREEN,URINE NEGATIVE (NEGATIVE); METHADONE SCREEN, URINE NEGATIVE (NEGATIVE); OPIATE SCREEN,URINE NEGATIVE (NEGATIVE); PH,URINE DRUG SCREEN 6.5 (5.0-8.0); PHENCYCLIDINE SCREEN,URINE NEGATIVE (NEGATIVE)
[2022-12-21 07:15] VITALS: BP 125/75; PULSE 98; RESP 14
== END 2022-12-21 08:55 | disposition home or self-care (01) ==
LOC: EMS 21:27
DX: F10.129 Alcohol abuse with intoxication, unspecified (principal); G89.29 Other chronic pain; M54.9 Dorsalgia, unspecified; I10 Essential (primary) hypertension; Z59.00 Homelessness unspecified
CPT/HCPCS: 99285; 96365; 96375; 80053; 85025; 36415; 72100; 93005; 80307; 81003; 72131; J1885; J3490 ×2; J3411; J3475; J7030; G0480